=== PATIENT | female | born 1970 | race Caucasian/White ===

== ENCOUNTER 2018-04-10 19:30 | Emergency (ER) | payer OTHER ==
--- NOTE | 2018-04-10 20:04 | RAD ---
LEFT ANKLE: 04/10/18 Three views. HISTORY: Injury to ankle. IMPRESSION: No significant soft tissue swelling. No fracture or acute osseous abnormality. POS: [facility]
== END 2018-04-10 20:34 | disposition home or self-care (01) ==
LOC: MADERS 19:30
DX: S93.402A Sprain of unspecified ligament of left ankle, initial encounter (principal); X50.1XXA Overexertion from prolonged static or awkward postures, initial encounter; Y93.01 Activity, walking, marching and hiking